=== PATIENT | female | born 1930 | race Caucasian/White ===

== ENCOUNTER 2018-07-03 09:29 | Observation (INO) ==
--- NOTE | 2018-07-03 12:02 | Diag Imaging Result Doc PS360 ---
EXAM: CT HEAD/C-SPINE W/O CONTRAST INDICATION: head injury/pain TECHNIQUE: This exam was performed using automated exposure control, adjustment of mA or kV according to patient size, and/or use of iterative reconstruction technique. COMPARISON: MRI brain dated 01/06/2018. No prior CT head or CT C-spine is available for comparison. FINDINGS: Head: There is stable diffuse brain atrophy. There is patchy low attenuation in the periventricular and subcortical white matter suggesting mild microangiopathy. There is no definite acute infarct given the limited sensitivity of CT versus MRI. There is no discrete intracranial mass, mass effect, or intracranial hemorrhage. The surrounding soft tissues are essentially unremarkable. The calvaria is intact. C-spine: There is advanced multilevel degenerative facet arthropathy and degenerative disc disease with loss of disc space height and marginal osteophyte formation. This is seen at virtually every cervical level. This is causing chronic foraminal stenosis at multiple levels. There is only mild central canal narrowing at several levels. Otherwise, there is no discrete fracture, subluxation, or intrinsic osseous lesion. The surrounding soft tissues are essentially unremarkable. IMPRESSION: 1.Chronic changes as described. No evidence of acute intracranial pathology. 2.Multilevel degenerative arthropathy but no evidence of fracture or other definite acute C-spine injury. Electronically signed by Macario Oliver 07/03/2018 12:00 PM
--- NOTE | 2018-07-03 12:15 | Diag Imaging Result Doc PS360 ---
EXAM: FOREARM-LEFT HISTORY: fall, pain TECHNIQUE: Left forearm, two views COMPARISON: None. FINDINGS: No fracture. No dislocation. The bones are osteopenic. IMPRESSION: No acute bony injury. Electronically signed by Vahid Gaines 07/03/2018 12:12 PM
--- NOTE | 2018-07-03 12:16 | Diag Imaging Result Doc PS360 ---
EXAM: HUMERUS-LEFT HISTORY: fall, pain TECHNIQUE: Left humerus, two views COMPARISON: None. FINDINGS: No fracture. No dislocation. The bones are osteopenic. IMPRESSION: No acute bony injury. Electronically signed by Vahid Gaines 07/03/2018 12:14 PM
--- NOTE | 2018-07-03 12:17 | Diag Imaging Result Doc PS360 ---
EXAM: SHOULDER-LEFT HISTORY: pain, fall TECHNIQUE: Shoulder three views including an axillary Y-view COMPARISON: None. FINDINGS: No fracture. No dislocation. No separation at the acromioclavicular joint. There are long-standing arthritic changes to the shoulder. IMPRESSION: No acute bony injury. Electronically signed by Vahid Gaines 07/03/2018 12:15 PM
--- NOTE | 2018-07-03 12:21 | Diag Imaging Result Doc PS360 ---
EXAM: RIBS UNILAT W/PA CHEST LEFT HISTORY: fall, pain TECHNIQUE: Chest and left rib detail, three views COMPARISON: 03/15/2017 FINDINGS: No contusion. No pneumothorax. No displaced fracture. No pleural effusions identified. IMPRESSION: No injury. Electronically signed by Vahid Gaines 07/03/2018 12:18 PM
[2018-07-03 13:28] LABS: URINE SOURCE CATH
[2018-07-03 13:33] LABS: BILIRUBIN URINE NEGATIVE (NEGATIVE); BLOOD URINE MODERATE (NEGATIVE); COLOR YELLOW; GLUCOSE URINE NEGATIVE (NEGATIVE); KETONE URINE 40 mg/dL (NEGATIVE); LEUKOCYTES URINE NEGATIVE (NEGATIVE); NITRITE URINE NEGATIVE (NEGATIVE); PROTEIN URINE NEGATIVE (NEGATIVE); TURBIDITY URINE CLEAR (CLEAR); UR EPITHELIAL CELLS <10 /HPF (<10); URINE BACTERIA NEGATIVE /HPF; URINE RBC <10 /HPF (<10); URINE WBC <10 /HPF (<10); UROBILINOGEN URINE NORMAL (NORMAL)
[2018-07-03 13:42] LABS: BASO# 0.01 X1000 (0.0-0.2); BASO% 0.1 % (0.0-0.8); HEMATOCRIT 38.8 % (37.0-47.0); IMM GRAN# 0.05 X1000 (0.0-0.04); IMM GRAN% 0.4 % (0.0-0.5); LYMPH# 1.33 X1000 (1.2-3.4); LYMPH% 9.7 % (20.5-51.1); MCH 27.9 PG (27-31); MCHC 30.9 g/dL (33-37); MCV 90.2 FL (81-99); MONO# 0.59 X1000 (0.11-0.59); MONO% 4.3 % (1.7-9.3); MPV 10.3 FL (7.4-10.4); NEUT# 11.75 X1000 (1.4-6.5); NEUT% 85.5 % (42.2-75.2); PLT 340 X1000 (130-400); RDW 14.7 % (11.5-14.5); WBC 13.73 X1000 (4.8-10.8)
[2018-07-03 14:00] LABS: AGAP 17; ALB/GLOB RATIO 1.3; ALBUMIN 3.5 g/dL (3.5-5.0); ALKALINE PHOSPHATASE 72 U/L (32-104); BUN 15 mg/dL (8-22); CALCIUM 8.8 mg/dL (8.8-10.2); CHLORIDE 96 mmol/L (98-107); COSMO 274; CREATININE 0.8 mg/dL (0.5-0.9); ESTIMATED GFR > 60; GLUCOSE 156 mg/dL (70-104); GOT 14 U/L (10-30); GPT 6 U/L (10-36); POTASSIUM 5.6 mmol/L (3.5-5.1); SODIUM 135 mmol/L (136-145); TCO2 22 mmol/L (25-35); TOTAL BILIRUBIN 0.43 mg/dL (0.20-1.00); TOTAL PROTEIN 6.2 g/dL (6.3-8.3)
[2018-07-03] MEDS ORDERED: MOTRIN PO ONE (14:32)
[2018-07-03] MEDS ORDERED: NORCO-7.5 PO ONE (15:36)
[2018-07-03] MEDS ORDERED: M.V.I.-12 10 ML, FOLIC ACID 1 MG, MAGNESIUM SULFATE 1 GM, THIAMINE 100 MG in NS 1,000 ML IV ONE (16:09)
[2018-07-03 16:37] LABS: AGAP 16; BUN 15 mg/dL (8-22); CALCIUM 8.5 mg/dL (8.8-10.2); CHLORIDE 97 mmol/L (98-107); COSMO 275; CREATININE 0.7 mg/dL (0.5-0.9); ESTIMATED GFR > 60; GLUCOSE 177 mg/dL (70-104); SODIUM 135 mmol/L (136-145); TCO2 22 mmol/L (25-35)
--- NOTE | 2018-07-03 17:49 | PROVIDER DOCUMENTATION ---
This chart was entered by Milena Lazo Scribe, acting as scribe for Jurgen Ibarra MD. HPI-Musculoskeletal Pain/Inj - GENERAL Chief Complaint: Extremity Pain Stated Complaint: arm pain Time Seen by Provider: 07/03/18 10:01 Source: patient, family (daughter) - HX OF PRESENT ILLNESS-MUSKULOSKELTAL Nature of Presenting Problem: 87 yowf presents to the ed with her daughter at bedside. pt had a fall 3 days prior but daughter sts pt has been at baseline and has not complained of any p ain. pt woke thios am and about 0830 started to complain of left sised pain. pt points to ribs and winces when chest wall is palpated. pt sts 'it hurts to breathe" daughter sts this am is the only time pt has stated any pain post fall Quality of Pain: reports: aching Severity in ED: mild Onset/Duration: this morning (0830) Timing: still present, intermittent Modifying Factors: improves with: immobilization. worse with: movement, palpation Any recent injury?: Yes (fall 3 days prior but had no pain till today) Locality of Occurance: Home Similar Symptoms Previously?: No Recently seen or treated by another doctor?: No Review of Systems - Adult - REVIEW OF SYSTEMS - ADULT Constitutional: denies: chills, fever Eyes: reports: no symptoms reported Ears, Nose, Mouth & Throat: reports: no symptoms reported Cardiovascular: reports: chest pain (chest wall pain). denies: palpitations, syncope Respiratory: denies: cough, shortness of breath, wheezing Gastrointestinal: reports: see HPI, poor appetite. denies: abdominal pain, diar ujdy, nausea, vomiting Genitourinary: reports: see HPI, hematuria. denies: dysuria Musculoskeletal: reports: see HPI, other (left sided anterior rib ppain) Integumentary: reports: no symptoms reported Neurological: denies: dizziness/vertigo, headache/migraines Psychiatric: reports: no symptoms reported Endocrine: reports: no symptoms reported Hematologic/Lymphatic: reports: no symptoms reported Allergic/Immunologic: reports: no symptoms reported All Other Systems: Reviewed and Negative Past History - Adult - PAST MEDICAL HISTORY-ADULT Review of Records: reports: Old Records Reviewed, Nursing Assessment Review, Medications Reviewed, Social history reviewed & non-contributory. Major Childhood Illnesses: reports: denies history Cardiovascular: reports: CAD, HTN, hyperlipidemia, [place] Respiratory: reports: denies history Gastrointestinal: reports: GERD Obstetrical/Gynecological: reports: denies history Genitourinary: reports: denies history Musculoskeletal: reports: denies history Neurological: reports: Alzheimer's, dementia Psychiatric: reports: denies history Endocrine/Immune: reports: Diabetes Diabetes Type: Type 2 (last A1C 5.3) Other Conditions: reports: deaf/hard of hearing - PRIOR SURGERIES/PROCEDURES Surgical/Procedure History: reports: cardiac stent, back/neck - IMMUNIZATION STATUS Childhood Immunizations: See Nurse Assessment Flu Vaccine: See Nurse Assessment - FAMILY HISTORY Family History: reviewed, not pertinent - SOCIAL HISTORY Substance Use: denies Living Situation: family Physical Exam-Injury Related - Physical Exam-Injury Related Initial Vital Signs Reviewed: Yes General Appearance: appears well, alert, thin Eyes: PERRL/EOMI, pink conjunctivae Head, Ears, Nose, Mouth & Throat: moist mucous membranes, normal ENT inspection, other (pt has noted tremor to lower mouth per normal/pt has mild bruise on rt cheek) Neck: non-tender, full range of motion, supple, normal inspection Respiratory: chest non-tender, lungs clear, normal breath sounds Cardiovascular: normal peripheral pulses, regular rate, rhythm Chest/Breast: deferred Abdominal Exam: normal bowel sounds, non tender, soft Female Genitalia/Pelvic Exam: deferred Rectal Exam: deferred Hemoccult Exam: deferred Lymphatic: no adenopathy Back Exam: normal inspection Extremity: normal inspection, normal capillary refill, pelvis stable Integumentary: normal color, warm/dry, ecchymosis (rt cheek) Neurologic: grossly normal (at baseline per daughter) Psych/Mental Status: normal mood/affect, normal thought content, normal thought process - Glascow Coma Score Best Eye Response ([place]): (3) open to voice Best Verbal Response ([place]): (5) oriented Best Motor Response ([place]): (6) obeys commands [place] Total: 14 Progress - PLAN OF CARE/RESULTS Progress/Plan/Lab Results: Vital Signs - 8 hr 07/03/18 13:30 07/03/18 14:02 07/03/18 14:11 Temperature 100.6 F H Pulse Rate 79 Respiratory Rate 20 Blood Pressure 142/77 126/61 125/67 O2 Sat by Pulse Oximetry 96 95 96 07/03/18 14:12 07/03/18 14:32 07/03/18 15:02 Temperature Pulse Rate Respiratory Rate Blood Pressure 125/67 137/67 128/67 O2 Sat by Pulse Oximetry 96 07/03/18 15:20 07/03/18 15:32 07/03/18 15:50 Temperature Pulse Rate Respiratory Rate Blood Pressure 97/50 O2 Sat by Pulse Oximetry 96 94 L 95 07/03/18 16:02 07/03/18 16:05 07/03/18 16:06 Temperature Pulse Rate Respiratory Rate Blood Pressure 81/52 88/49 94/51 O2 Sat by Pulse Oximetry 95 97 96 07/03/18 16:31 07/03/18 16:47 07/03/18 16:48 Temperature 98 F Pulse Rate Respiratory Rate Blood Pressure 96/54 95/52 O2 Sat by Pulse Oximetry 95 95 07/03/18 17:02 07/03/18 17:20 07/03/18 17:31 Temperature Pulse Rate Respiratory Rate Blood Pressure 96/57 99/50 100/57 O2 Sat by Pulse Oximetry 97 96 95 07/03/18 18:02 07/03/18 18:32 07/03/18 18:37 Temperature Pulse Rate Respiratory Rate Blood Pressure 90/52 88/45 100/53 O2 Sat by Pulse Oximetry 95 95 96 07/03/18 18:40 Temperature Pulse Rate Respiratory Rate Blood Pressure O2 Sat by Pulse Oximetry 96 07/03/18 14:19 Influenza Screen - Final Nasopharyngeal Laboratory Results - last 24 hr 07/03/18 07/03/18 07/03/18 13:05 13:30 13:30 WBC 13.73 H RBC 4.30 Hgb 12.0 Hct 38.8 MCV 90.2 MCH 27.9 MCHC 30.9 L RDW Std Deviation 14.7 H Plt Count 340 MPV 10.3 Immature Gran % (Auto) 0.4 Neut % (Auto) 85.5 H Lymph % (Auto) 9.7 L [place] % (Auto) 4.3 Eos % (Auto) 0.0 Baso % (Auto) 0.1 Immature Gran # (Auto) 0.05 H Neut # (Auto) 11.75 H Lymph # (Auto) 1.33 [place] # (Auto) 0.59 Eos # (Auto) 0.00 Baso # (Auto) 0.01 Sodium 135 L Potassium 5.6 H Chloride 96 L Carbon Dioxide 22 L Anion Gap 17 BUN 15 Creatinine 0.8 Estimated GFR/1.73 m2 > 60 BUN/Creatinine Ratio 19 Glucose 156 H Calculated Osmolality 274 Calcium 8.8 Total Bilirubin 0.43 AST 14 ALT 6 L Alkaline Phosphatase 72 Troponin T Total Protein 6.2 L Albumin 3.5 Globulin 2.7 Albumin/Globulin Ratio 1.3 Urine Source CATH Urine Color YELLOW Urine Turbidity CLEAR Urine pH 5.0 Ur Specific [place] 1.010 Urine Protein NEGATIVE Ur Glucose (Stick) NEGATIVE Ur Ketones (Stick) 40 A Urine Blood MODERATE A Urine Nitrite NEGATIVE Urine Bilirubin NEGATIVE Urobilinogen Dipstick NORMAL Urine Leukocytes NEGATIVE Urine WBC (Auto) <10 Urine RBC (Auto) <10 U Epithel Cells (Auto) <10 Urine Bacteria (Auto) NEGATIVE 07/03/18 07/03/18 13:30 15:36 WBC RBC Hgb Hct MCV MCH MCHC RDW Std Deviation Plt Count MPV Immature Gran % (Auto) Neut % (Auto) Lymph % (Auto) [place] % (Auto) Eos % (Auto) Baso % (Auto) Immature Gran # (Auto) Neut # (Auto) Lymph # (Auto) [place] # (Auto) Eos # (Auto) Baso # (Auto) Sodium 135 L Potassium 5.0 Chloride 97 L Carbon Dioxide 22 L Anion Gap 16 BUN 15 Creatinine 0.7 Estimated GFR/1.73 m2 > 60 BUN/Creatinine Ratio 21 Glucose 177 H Calculated Osmolality 275 Calcium 8.5 L Total Bilirubin AST ALT Alkaline Phosphatase Troponin T 0.039 Total Protein Albumin Globulin Albumin/Globulin Ratio Urine Source Urine Color Urine Turbidity Urine pH Ur Specific [place] Urine Protein Ur Glucose (Stick) Ur Ketones (Stick) Urine Blood Urine Nitrite Urine Bilirubin Urobilinogen Dipstick Urine Leukocytes Urine WBC (Auto) Urine RBC (Auto) U Epithel Cells (Auto) Urine Bacteria (Auto) Orders Category Date Time Status CT HEAD/C-SPINE W/O CONTRAST [CT] Stat Exams 07/03/18 10:09 Completed FOREARM-LEFT [RAD] Stat Exams 07/03/18 10:13 Completed HUMERUS-LEFT [RAD] Stat Exams 07/03/18 10:13 Completed RIBS UNILAT W/PA CHEST LEFT [RAD] Stat Exams 07/03/18 10:10 Completed SHOULDER-LEFT [RAD] Stat Exams 07/03/18 10:13 Completed BMP [BASIC METABOLIC PANEL] [CHEM] Stat Lab 07/03/18 15:36 Completed CBC WITH ELECTRONIC DIFF [HEME] Stat Lab 07/03/18 13:30 Completed COMPREHENSIVE METABOLIC PANEL [CHEM] Stat Lab 07/03/18 13:30 Completed INFLUENZA SCREEN A/B Stat Lab 07/03/18 14:19 Completed TROPONIN T Stat Lab 07/03/18 13:30 Completed TROPONIN T Stat Lab 07/03/18 18:40 Ordered UA [URINALYSIS] [URINALYSIS] Stat Lab 07/03/18 13:05 Completed Hydrocodone/APAP 7.5 mg/325 mg [[place]-7.5] Med 07/03/18 15:36 Discontinued 1 each PO NOW ONE Ibuprofen [Motrin] Med 07/03/18 14:32 Discontinued 600 mg PO NOW ONE Mvi [M.v.i.-12] 10 ml Med 07/03/18 16:09 Discontinued Folic Acid 1 mg Magnesium Sulfate 1 gm Thiamine 100 mg 0.9% Sodium Chloride Inj [Ns] 1,000 ml IV NOW EKG [EKG] Stat Ther 07/03/18 17:55 Ordered At recheck pt noted that that she was having intermittent lt chest pain. Result Diagrams: 07/03/18 13:30 07/03/18 15:36 - REASSESSMENT Reassessment #1 Time Reassessed: 11:35 (daughter at bedside) Status: unchanged Reassessment Comment: pt is resting in the room Reassessment #2 Time Reassessed: 13:01 (pt is resting in bed ) Status: unchanged Reassessment #3 Time Reassessed: 15:43 (pt is resting in no distress) Status: unchanged - XRAY 1 XRAY: Left XRAY Study: Shoulder Impression: See EMR Report (EXAM: SHOULDER-LEFT HISTORY: pain, fall ROLANDO HNIQUE: Shoulder three views including an axillary Y-view COMPARISON: None. FINDINGS: No fracture. No dislocation. No separation at the acromioclavicular joint. There are long-standing arthritic changes to the shoulder. IMPRESSION: No acute bony injury. Electronically signed by Vahid Gaines 07/03/2018 12:15 PM 07/03/18 1213 Interpreting Physician: Vahid Gaines MD Dictated Date/Time: 07/03/18 1215 cc: Jurgen Ibarra MD; Nichole Vicente MD) 2 XRAY: Left XRAY Study: Humerus Impression: See EMR Report (EXAM: HUMERUS-LEFT HISTORY: fall, pain TECHNIQUE: Left humerus, two views COMPARISON: None. FINDINGS: No fracture. No dislocation. The bones are osteopenic. IMPRESSION: No acute bony injury. Electronically signed by Vahid Gaines 07/03/2018 12:14 PM 07/03/18 1214 Interpreting Physician: Vahid Gaines MD Dictated Date/Time: 07/03/18 1213 cc: Jurgen Ibarra MD; Nichole Vicente MD) 3 XRAY: Left XRAY Study: Forearm (EXAM: FOREARM-LEFT HISTORY: fall, pain TECHNIQUE: Left forearm, two views COMPARISON: None. FINDINGS: No fracture. No dislocation. The bones are osteopenic. IMPRESSION: No acute bony injury. Electronically signed by Vahid Gaines 07/03/2018 12:12 PM 07/03/18 1212 Interpreting Physician: Vahid Gaines MD Dictated Date/Time: 07/03/18 1212 cc: Jurgen Ibarra MD; Nichole Vicente MD) 4 XRAY: Left XRAY Study: Chest, Ribs Impression: See EMR Report (EXAM: RIBS UNILAT W/PA CHEST LEFT HISTORY: fall, pain TECHNIQUE: Chest and left rib detail, three views COMPARISON: FINDINGS: No contusion. No pneumothorax. No displaced fracture. No pleural effusions identified. IMPRESSION: No injury. Electronically signed by Vahid Gaines 07/03/2018 12:18 PM 07/03/18 1218 Interpreting Physician: Vahid Gaines MD Dictated Date/Time: 07/03/18 1216 cc: Jurgen Ibarra MD; Nichole Vicente MD) - CT/MRI 1 CT Study: Cervical Spine, Head Impression: See EMR Report (EXAM: CT HEAD/C-SPINE W/O CONTRAST INDICATION: head injury/pain TECHNIQUE: This exam was performed using automated exposure control, adjustment of mA or kV according to patient size, and/or use of iter ative reconstruction technique. COMPARISON: MRI brain dated 01/06/2018. No prior CT head or CT C-spine is available for comparison. FINDINGS: Head: There is stable diffuse brain atrophy. There is patchy low attenuation in the periventricular and subcortical white matter suggesting mild microangiopathy. There is no definite acute infarct given the limited sensitivity of CT versus MRI. There is no discrete intracranial mass, mass effect, or intracranial hemorrhage. The surrounding soft tissues are essentially unremarkable. The calvaria is intact. C-spine: There is advanced multilevel degenerative facet arthropathy and degenerative disc disease with loss of disc space height and marginal osteophyte formation. This is seen at virtually every cervical level. This is causing chronic foraminal stenosis at multiple levels. There is only mild central canal narrowing at several levels. Otherwise, there is no discrete fracture, subluxation, or intrinsic osseous lesion. The surrounding soft tissues are essentially unremarkable. IMPRESSION: 1.Chronic changes as described. No evidence of acute intracranial pathology. 2.Multilevel degenerative arthropathy but no evidence of fracture or other definite acute C-spine injury. Electronically signed by Macario Oliver 07/03/2018 12:00 PM 07/03/18 1200 Interpreting Physician: Macario Oliver MD Dictated Date/Time: 07/03/18 1151 cc: Jurgen Ibarra MD; Nichole Vicente MD) - CONSULTS/PCP/HOSPITALIST Notification #1 *Consult/PCP/Hospitalist*: Cyndi Hill for Dr Méndez Time Discussed: 18:48 Consult Disposition: Admit Departure - Departure Date of Disposition Decision: 07/03/18 Time of Disposition Decision: 17:44 DIAGNOSIS: Fall, Bronchitis, Muscle strain, Chest pain, Hyperkalemia Disposition: ADMITTED INPATIENT 09 Certified Medical Emergency: Emergent Condition: Good Additional Freetext Instructions: Follow up with your DR tomorrow, to ER sooner if worse. ED Follow Up Instructions: You have been treated by a care provider in the Emergency Department. These instructions are being provided to you so you can have an understanding of how to care for yourself upon discharge. Upon discharge from the Emergency Department, you are responsible for making arrangements for follow-up care by a physician of your choice. Take all prescribed medications as directed. Return to the Emergency Department immediately for any new or worsening symptoms. You may call the Physician Referral phone number at [phone] to obtain a list of Physicians who are taking new patients. Prescriptions: Cephalexin [Keflex] 500 mg PO 4XDAY #20 cap Referrals and Follow-Ups: Nichole Vicente MD [Primary Care Provider] - - Critical Care Note This patient required my direct & personal management of CC.: No Attestation - Physician/ DOREEN Attestation Patient care was provided by Advanced Practice Provider:: No The physician spent face to face time with patient:: Yes Advanced Practice Provider documentation review:: Supervising physician onsite and consulted in the evaluation and care of this patient. The physician did have a face to face encounter with the patient. This chart was documented by the indicated scribe, (Milena Lazo Scribe) and accurately reflects the services I performed and decisions made by me, Jurgen Ibarra MD, as attested by the provider's signature.
[2018-07-03] MEDS ORDERED: ATIVAN IV PRN (20:08)
[2018-07-03] MEDS ORDERED: NS 500 ML IV ONE (20:08)
[2018-07-03] MEDS ORDERED: ZOFRAN IV PRN (20:08)
[2018-07-03] MEDS ORDERED: PROTONIX IV SCH ×2 (20:15→20:30)
[2018-07-03] MEDS ORDERED: LOVENOX SUBQ SCH (20:15)
[2018-07-03] MEDS ORDERED: NS 1,000 ML IV SCH (20:15)
[2018-07-03] MEDS: DEMEROL IV PRN (20:20)
[2018-07-03] MEDS ORDERED: SODIUM CHLORIDE 0.9% INJ SCH ×2 (20:30→23:11)
[2018-07-03 20:38] LABS: HEMOGLOBIN A1C 6.1 % (4.8-6.0)
--- NOTE | 2018-07-03 21:05 | HISTORY AND PHYSICAL ---
PRIMARY CARE PHYSICIAN: Nichole Vicente MD HISTORY OF PRESENT ILLNESS: This is an 87-year-old female with past medical history of advanced Alzheimer's, hypertension and diabetes who was brought to the emergency department because of chest pain. It is important to mention that this patient had a fall on Saturday afternoon, and actually she landed on the left side of her chest and back. Apparently, the family was not sure about to bring it to the hospital, but the patient refused to go. Today in the morning, she was complaining of some chest pain in the left side that was going to the back actually where she had fall. Basically that is the reason why they called us for admission, although ER note reports that the pain is most likely musculoskeletal because that pain was reproducible on physical examination. The family also reports that during the last few months patient is declining progressively. They report that her appetite is getting worse. The patient also refused to use a walker. Patient does walk at home. She has become more confused. Her primary care doctor had ordered an MRI that was done in December 2017 which basically showed diffuse brain atrophy but no other acute findings. So the reason for admission is chest pain that is most likely musculoskeletal, but because this patient is having low appetite and she has declined progressively, she may need to be placed in the [facility] facility. Also although we were not notified about it, blood pressure is low. She takes blood pressure medication, but she did not take it today so in any case, I will definitely proceed with checking troponins 3 times and also do an echocardiogram. If those are okay, we are not going to pursue any more for the cardiac workup. As we mentioned before, family is interested for this patient to go to a rehab facility so Physical therapy and school social worker will be consulted as well. PAST MEDICAL HISTORY: 1. Advanced Alzheimer with an MRI done 1 year ago that shows degenerative changes. 2. Hypertension. 3. Diabetes mellitus type 2, well controlled. According to the patient, the last hemoglobin A1c a few months ago was 5.0. 4. Bulging disk in the lower back that requires to take her pain medication on a regular basis. PAST SURGICAL HISTORY: Low back surgery many years ago. ALLERGIES: She is allergic to Reglan. Family did not mention any allergies to Liz or oxycodone or acetaminophen. SOCIAL HISTORY: She never smoked. She does not drink alcohol. She does not use any illicit drugs. Patient lives with . Son and daughter check on her frequently. REVIEW OF SYSTEMS: Not possible to obtain because of the mental status of the patient. FAMILY HISTORY: Unremarkable. PHYSICAL EXAMINATION: VITAL SIGNS: Temperature 98.0 degrees but at 2:11 it was reported 100.6 with heart rate 79, respiratory rate 20, blood pressure is 90/52 and O2 saturation 96% on room air. GENERAL: This is a chronically ill appearing, 87-year-old, female lying in bed in no acute distress. HEENT: Head is normocephalic and atraumatic. Mucous membranes dry. NECK: No JVD noted. No carotid bruits. No lymphadenopathy. No thyromegaly. CARDIOVASCULAR EXAM: S1, S2 heard. No murmurs, gallops, or rubs. Regular rate and rhythm. RESPIRATORY EXAM: Clear bilaterally to auscultation. No work of breathing or using accessory muscles. ABDOMEN: Soft, nontender to palpation. Bowel sounds present. No organomegaly. EXTREMITIES: No clubbing, cyanosis, or edema. Peripheral pulses present in both legs. NEUROLOGICAL: The patient is sleepier, followed basic commands. Moves 4 extremities spontaneously. LABORATORY DATA: White cell count 13.73 with hemoglobin 12.0, hematocrit 38.8, platelets 340,000 with sodium 135. Normal renal function. Glucose 177, AST 14 and ALT 6. Urinalysis is unremarkable. ASSESSMENT AND PLAN: 1. Chest pain, most likely musculoskeletal. Considering that this patient had a recent fall 2 days ago, I think this pain is most likely musculoskeletal. One troponin set has been ordered because of low blood pressure. There was a concern from ER staff to keep this patient overnight so we are going to continue checking troponins 2 more times, and we will do an echocardiogram. We are going to provide IV fluids. We will keep checking vitals every 6 hours. 2. Advanced dementia. We will continue with home medications once those are reconciliated. 3. Diabetes mellitus type 2. We will place this patient on sliding scale insulin, Accu-Chek before meals and also at bedtime. 4. Chronic back pain. That is secondary to bulging disk. Also, patient had surgery many years ago. We will provide pain medications as needed. DISPOSITION: We have talked with the family about the patient going to rehab. They are okay with that. The patient is not sure about it. We will continue to monitor this patient closely. cc: Eduardo Hunter MD
[2018-07-04] MEDS: ASPIRIN PO SCH ×2 (00:19→09:59)
[2018-07-04] MEDS: DEMEROL IV PRN (02:08)
[2018-07-04] MEDS ORDERED: CALMOSEPTINE OINTMENT TOP PRN (06:32)
[2018-07-04 06:44] LABS: HEMOGLOBIN 10.5 g/dL (12.0-16.0); MCH 28.2 PG (27-31); MCHC 30.9 g/dL (33-37); MCV 91.4 FL (81-99); MPV 10.8 FL (7.4-10.4); RBC 3.72 XMIL (4.2-5.4); RDW 14.9 % (11.5-14.5); WBC 15.34 X1000 (4.8-10.8)
[2018-07-04 07:03] LABS: AGAP 13; BUN 15 mg/dL (8-22); CALCIUM 8.2 mg/dL (8.8-10.2); CHLORIDE 106 mmol/L (98-107); COSMO 282; CREATININE 0.6 mg/dL (0.5-0.9); ESTIMATED GFR > 60; GLUCOSE 123 mg/dL (70-104); POTASSIUM 4.3 mmol/L (3.5-5.1); SODIUM 140 mmol/L (136-145); TCO2 21 mmol/L (25-35)
--- NOTE | 2018-07-04 08:48 | EKG Report ---
Test Performed on : 07/04/2018 08:34:19 AM Test Reason : chest pain Blood Pressure : / mmHG Vent. Rate : 063 BPM Atrial Rate : 063 BPM P-R Int : 170 ms QRS Dur : 086 ms QT Int : 472 ms P-R-T Axes : 000 055 083 degrees QTc Int : 483 ms Normal sinus rhythm. ST & T wave abnormality, consider anterior ischemia Prolonged QT Abnormal ECG When compared with ECG of 03-JUL-2018 18:05, (Unconfirmed) Nonspecific T wave abnormality no longer evident in Inferior leads Unconfirmed Result
--- NOTE | 2018-07-04 09:03 | EKG Report ---
Test Performed on : 07/03/2018 6:05:30 PM Test Reason : cough Blood Pressure : / mmHG Vent. Rate : 060 BPM Atrial Rate : 060 BPM P-R Int : 156 ms QRS Dur : 088 ms QT Int : 480 ms P-R-T Axes : 080 004 -17 degrees QTc Int : 480 ms Normal sinus rhythm. T wave abnormality, consider anterolateral ischemia Prolonged QT Abnormal ECG When compared with ECG of 19-MAR-2017 01:01, NV interval has increased Vent. rate has decreased BY 32 BPM T wave inversion now evident in Anterior leads Unconfirmed Result
[2018-07-04] MEDS ORDERED: ZYVOX 600 MG/D5W 600 MG/300 ML IVPB IV SCH (09:15)
[2018-07-04] MEDS ORDERED: MAXIPIME 1 GM in NS 50 ML IV SCH (09:15)
--- NOTE | 2018-07-04 13:58 | Diag Imaging Result Doc PS360 ---
CT THORAX/ABD/PELVIS W/O CON - 07/04/2018 INDICATION: leukocytosis,fever COMPARISON: 08/21/2012 FINDINGS: CHEST: There is no adenopathy. There is advanced calcified coronary artery disease. Heart size is top normal. There is a small left pleural effusion. There are infiltrates in the posterior upper lobes bilaterally, and in the right middle lobe. There is significant passive atelectasis of the lower lobe. There are moderate degenerative changes of the spine. No acute or suspicious bony lesion. Abdomen pelvis: There is some trace nonspecific free fluid in the pelvis. There is some soft tissue gas at the anterior right body wall near the iliac wing on the right. This is in the subcutaneous soft tissue. 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 There are moderate degenerative changes of the spine. No acute or suspicious bony lesion. IMPRESSION: 1. Multilobar bilateral infiltrates compatible with pneumonia. 2. Small left pleural effusion. 3. Trace nonspecific pelvic free fluid. 4. Tiny focus of superficial subcutaneous soft tissue gas at the right iliac wing. This exam was performed using automated exposure control, adjustment of mA or kV according to patient size, and/or use of iterative reconstruction technique Electronically signed by Emiliano Belcher 07/04/2018 1:56 PM
[2018-07-04] MEDS ORDERED: NS 1,000 ML IV SCH (14:00)
--- NOTE | 2018-07-04 15:24 | PROGRESS NOTE ---
DATE: 07/04/2018 SUBJECTIVE: The patient states that she wants to go home and does not want to remain in the hospital any longer. OBJECTIVE: Vital Signs: Temperature 98 degrees, blood pressure 148/64, heart rate 74, respirations 18, and O2 saturation 96% on room air. General: This is a chronically ill-appearing elderly female lying in bed in no acute distress. Heart: S1, S2 normal. Regular rate and rhythm. Lungs: Equal air entry bilaterally. No wheezing. No rales. Abdomen: Positive bowel sounds. Soft, nontender, and nondistended. Extremities: No edema. No cyanosis. Neurologic: The patient is awake but demented. LABORATORY: White blood cell count 15, hemoglobin 10, hematocrit 34, and platelets 289,000. Sodium 140, potassium 4.3, chloride 106, CO2 21, BUN 15. Troponin 0.19. CRP 176.64. DIAGNOSTIC: CT of the abdomen and pelvis shows multilobular bilateral infiltrates compatible with pneumonia. Small left pleural effusion. ASSESSMENT AND PLAN: 1. Bilateral lobe pneumonia. The patient will be started on Zyvox and cefepime plus bronchodilator therapy and supplemental oxygen. Blood cultures have already been obtained. 2. Advanced dementia. Aware. 3. She has elevated troponin. After discussion with the patient's daughters, she is not interested in an invasive workup at this time. We will treat the patient symptomatically. 4. Leukocytosis likely secondary to pneumonia. Continue with antibiotic therapy. 5. Disposition. The case was discussed with the patient's daughter and Sanjuana with palliative care. The daughter would like to arrange for the patient to be discharged home as soon as possible once arrangements were made either via hospice or home health services. cc: Clementine Crawford MD
[2018-07-04 15:31] VITALS: BP 131/64
--- NOTE | 2018-07-05 17:51 | ECHO REPORT ---
ORDER DATE: 07/03/2018 ECHOCARDIOGRAPHIC MEASUREMENTS: 1. Interventricular septum 0.8. 2. Left ventricular posterior wall 0.5. 3. Diastolic diameter 4.1. 4. Left atrium 4.4 cm. 5. Aorta 3.0 cm. SUMMARY: 1. Aortic valve leaflets are sclerosed, trileaflet opening normally. 2. Mitral valve was normal. 3. Tricuspid valve was normal. 4. Pulmonic valve was normal. 5. There is biatrial enlargement. 6. There is mild pulmonary regurgitation. 7. There is mild mitral regurgitation. 8. Peak velocity across the aortic valve was 3 m/sec. There is aortic sclerosis. Hyperdynamic circulation. There is no aortic regurgitation. 9. There is mild tricuspid regurgitation. Peak velocity across the tricuspid valve was 3.3 m/sec. 10. Pulmonary artery systolic pressure of 54 mmHg. 11. Normal left ventricular cavity size. 12. Estimated ejection fraction of 60%. 13. There is no pericardial effusion or obvious intracardiac mass or thrombus seen. cc: MD Eduardo Manzano MD
== END 2018-07-04 18:56 | disposition home or self-care (01) ==
LOC: SUPCPDRO → DIRADM 09:29 → ED 09:29 → 3N 09:29 → SUATTDRO 22:14 → ED 07-04 18:56 → UNDODISIN 07-04 18:56 → ED 07-08 11:09
PROVIDERS: ADMIT Family Medicine; ATTEND Family Medicine
CPT/HCPCS: 70450; 71101; 71250; 72125; 73030; 73060; 73090; 74176; 80048; 80053; 81001; 82948; 83036; 84134; 84484; 85025; 85027; 85379; 85651; 86140; 87040; 87088; 87275; 87276; 87804; 93005; 93010; 93306; 96365; 96366; 96368; 96372; 96375; 97162; 97530; 99285; A9270; C9113; G0378; J0692; J1650; J2020; J2175; J3411; J3475; J7030; S0164; XXXXX